=== PATIENT | female | born 1980 | race African-American/Black ===

== ENCOUNTER 2024-02-18 01:18 | Emergency (ER) | payer SELFPAY | END 2024-02-18 03:08 | disposition home or self-care (01) | LOC: JD.ED 01:18 | DX: R07.89 Other chest pain (principal); Z90.49 Acquired absence of other specified parts of digestive tract; Z90.710 Acquired absence of both cervix and uterus | CPT/HCPCS: 71046; 71046-26; 99282; 99284 ==